=== PATIENT | male | born 1955 | race Caucasian/White ===

== ENCOUNTER 2021-07-19 06:51 | Day surgery (SDC) | payer MEDICARE ==
[2021-07-19] MEDS ORDERED: Xylocaine 1% Vial 30 ML PF IJ ONE (06:52)
[2021-07-19] MEDS ORDERED: Decadron 4 MG INJ IV ONE (06:52)
[2021-07-19] MEDS ORDERED: Depo-Medrol 40 MG/ML IM ONE (06:52)
[2021-07-19] MEDS ORDERED: Sodium Chloride 0.9% 10 ML FLUSH Syringe IJ ONE (06:52)
[2021-07-19] MEDS ORDERED: DIPRIVAN 200 MG/20 ML IV ONE (07:32)
[2021-07-19] MEDS ORDERED: Lactated Ringers 1,000 ML IV ONE (10:15)
--- NOTE | 2021-07-19 10:47 | XRAY ---
Indication: Caudal LAUREL and right piriformis injection. Intraoperative fluoroscopy provided for 53 seconds. 3 digital spot image submitted for interpretation demonstrates posterior caudal needle tip projecting mid sacrum. Second needle tip projects over the expected right piriformis muscle. Small amount of contrast injected for both needle tip placement. Correlate with intraoperative findings/report.
--- NOTE | 2021-07-19 11:51 | XRAY ---
53 seconds fluoroscopy time in surgery for caudal LAUREL and right piriformis muscle injection.
== END 2021-07-19 08:41 | disposition home or self-care (01) ==
LOC: SDC-PAIN 06:51
PROVIDERS: ATTEND Psychiatry & Neurology Pain Medicine
DX: M54.16 Radiculopathy, lumbar region (principal); M79.18 Myalgia, other site; Z79.899 Other long term (current) drug therapy
CPT/HCPCS: 20552; 62323; 72220; 77002; 77003; 82947; J1030; J1100; J2001; J2704; Q9966